=== PATIENT | male | born 1955 | race Caucasian/White ===

== ENCOUNTER 2017-05-21 16:07 | Inpatient (IN) | payer MEDICARE ==
[2017-05-21 16:44] VITALS: BMI 26.9
[2017-05-22] MEDS ORDERED: Apap-Butalbital-Caffeine 325-50-40mg Tab PO PRN (00:14)
[2017-05-22] MEDS ORDERED: Albuterol-Ipratrop 3 mg / 0.5 (3 ml) UD IH PRN (00:58)
[2017-05-22] MEDS: Insulin Lispro (humaLOG) 100 Units/ml Inj SC SCH ×4 (07:27→21:49)
[2017-05-22] MEDS: Pantoprazole 40 mg EC Tab PO SCH (08:54)
--- NOTE | 2017-05-22 12:13 | PSY.TMCNF ---
Nursing - Vital Signs Vital Signs (Last 8 hours): Vital Signs 05/22/17 05/22/17 05/22/17 07:54 08:53 08:54 Temperature 97.9 F Pulse Rate 73 73 73 Respiratory 18 Rate Blood Pressure 166/95 H 166/95 H 166/95 H O2 Sat by Pulse 97 Oximetry 05/22/17 08:55 Temperature Pulse Rate 73 Respiratory Rate Blood Pressure 166/95 H O2 Sat by Pulse Oximetry - Bladder Management Bladder Pattern: Normal - Bowel Management Bowel Pattern: Normal - Goals/Time Frame Comments: Pt was seen awake and alert laying in bed. Pt agreeable to evaluation session. Pt was able to identify his minimal leisure interests such as reading, writing, and watching television. 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 Pt expressed minimal interest in participating in recreation therapy sessions. Physical Therapy - Bed Mobility Bed Mobility: Contact Guard - Transfers Wheelchair to Mat: Contact Guard Sit to Stand: Contact Guard - Ambulation Level of Assistance: Contact Guard, Minimal Assistance Distance (ft.): 150 Assistive Devices: N/A - Stair Negotiation Stairs: Level of Assistance: Verbal Cues, Contact Guard Handrails: Bilateral - Standing Balance Static Stand: Supervision Dynamic Stand: Single leg stance, Tandem stance, Minimal Assistance, Moderate Assistance - Pain Comment: occasional headache, RN made aware - Insight/Carryover Insight/Carryover: Good - Patient/Family Education Comment: Pt education provided for increased safety awareness and proper techniques during functional mobility skills. Pt/family education provided on therapy schedule and goals of acute rehab. - Assessment/Plan Assessment: Pt was educated about the benefits and purpose of participating in recreation therapy sessions on unit. Pt presents with impulsivity, decrease leisure awareness level, and decrease insight of deficits. - Goals Timeframe: 2 weeks Goals: Sit < > supine (I). SIt < > stand mod I. Pt will ambulate 500 ft (I). Pt will ascend/descend flight of stairs mod I with handrail - Provider Therapist: Kathleen Ma PT DPT License Number: [id number] Occupational Therapy - Arousal/Attention/Orientation Patient Orientation: Person, Place, Time - Pain Comment: occasional headache, RN made aware - Insight/Carryover Insight/Carryover: Good - Patient/Family Education Comment: Pt education provided for increased safety awareness and proper techniques during functional mobility skills. Pt/family education provided on therapy schedule and goals of acute rehab. - Assessment/Plan Assessment: Pt was educated about the benefits and purpose of participating in recreation therapy sessions on unit. Pt presents with impulsivity, decrease leisure awareness level, and decrease insight of deficits. - Goals Timeframe: 2 weeks Goals: Sit < > supine (I). SIt < > stand mod I. Pt will ambulate 500 ft (I). Pt will ascend/descend flight of stairs mod I with handrail - Provider Therapist: CASSANDRA Speech Therapy - Plan Assessment: Pt was educated about the benefits and purpose of participating in recreation therapy sessions on unit. Pt presents with impulsivity, decrease leisure awareness level, and decrease insight of deficits. Recreational Therapy - Participation Participation: Monitors His/Her Own Leisure Time - Attendance Attendance: Daily - Activities Leisure Activities: Television - Socialization Level of Socialization: Initiates/interacts freely with care givers and peer - Assessment Assessment/Plan: Pt was educated about the benefits and purpose of participating in recreation therapy sessions on unit. Pt presents with impulsivity, decrease leisure awareness level, and decrease insight of deficits. Problems Currently Limiting Participation: impulsivity, decrease leisure awareness level Goals and Time Frame: Pt will be encouraged to participate in 1:1 and group recreation therapy sessions 3-5x week to improve attention to task, arousal level, and leisure awareness level. - Provider Therapist: Edith Carrasco, [employer]INE [employer]PERATOR #[id number] Case Management - Discharge Plan Discharge Plan: Home with significant other/family Rehabilitation Plan - Treatment Plan Treatment Plan: Physical Therapy, Occupational Therapy, Speech, Dietary, Patient /Family Education - Recommendation Recommendation: Physical Therapy, Occupational Therapy, Speech, Dietary - Discharge Plan Discharge to: Home
[2017-05-22] MEDS: SYSTANE BALANCE OD SCH ×2 (12:32→17:44)
--- NOTE | 2017-05-22 16:44 | PCM.OPOC ---
Physiatry Overall Plan of Care - Overall Plan of Care Estimated Length of Stay in Weeks: 2 Rehab Impairment: Mobility, Gait, Balance, Coordination Etiologic Diagnosis: Cerebrovascular Accident Rehab/Medical Prognosis: Good - Anticipated Interventions Physical Therapy:: Yes Occupational Therapy:: Yes Speech Therapy:: No Recreational Therapy:: Yes - Therapy Goals Bed Mobility: Supervision Ambulation: Supervision Functional Positional Changes:: Supervision - Discharge Plan Discharge Destination: Home
--- NOTE | 2017-05-22 16:46 | CP.PCM.CON ---
History of Present Illness - History of Present Illness History of Present Illness: Dr Thomas PMR consultation coverage for Dr Hebert on Sammi Ulloa born 1955 who has been admitted to [facility] for acute inpatient rehabilitation. 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 Review of Systems - Constitutional Constitutional: absent: Chills, Daytime Sleepiness - EENT Eyes: absent: Blind Spots, Blurred Vision Ears: absent: Decreased Hearing Nose/Mouth/Throat: absent: Nasal Congestion, Nasal Discharge - Cardiovascular Cardiovascular: absent: Chest Pain - Respiratory Respiratory: absent: Dyspnea - Gastrointestinal Gastrointestinal: absent: Belching, Constipation - Genitourinary Genitourinary: absent: Difficulty Urinating - Musculoskeletal Musculoskeletal: absent: Arthralgias - Integumentary Integumentary: absent: Bleeding Lesions - Neurological Neurological: absent: Abnormal Hearing, Abnormal Movements, Lack of Coordination - Psychiatric Psychiatric: absent: Anxiety Past Patient History - Past Medical History & Family History Past Medical History?: Yes - Past Social History Smoking Status: Current Some Days Smoker Alcohol: None Drugs: Denies Home Situation {Lives}: With Family (7 steps) - CARDIAC Hx Hypertension: Yes - PULMONARY Hx Respiratory Disorders: Yes Other/Comment: recent Chest X-ray 05/18/2017 Patchy bibasilar infiltrates - NEUROLOGICAL Hx Neurological Disorder: Yes HX Cerebrovascular Accident: Yes (05/17/2017) - HEENT Hx HEENT Problems: No - RENAL Hx Chronic Kidney Disease: No - ENDOCRINE/METABOLIC Hx Diabetes Mellitus Type 2: Yes - HEMATOLOGICAL/ONCOLOGICAL Hx Blood Disorders: No Hx AIDS: No Hx Human Immunodeficiency Virus (HIV): No - INTEGUMENTARY Hx Dermatological Problems: No - MUSCULOSKELETAL/RHEUMATOLOGICAL Hx Musculoskeletal Disorders: No Hx Falls: No - GASTROINTESTINAL Hx Gastrointestinal Disorders: No - GENITOURINARY/GYNECOLOGICAL Hx Genitourinary Disorders: No - PSYCHIATRIC Hx Psychophysiologic Disorder: No Hx Substance Use: No - SURGICAL HISTORY Hx Surgeries: Yes Hx Coronary Artery Bypass Graft: Yes (CABG 2011) - ANESTHESIA Hx Anesthesia: Yes Hx Anesthesia Reactions: No Hx Malignant Hyperthermia: No Meds Allergies/Adverse Reactions: Allergies Allergy/AdvReac Type Severity Reaction Status Date / Time No Known Allergies Allergy Verified 05/21/17 23:30 - Medications Medications: Current Medications Acetaminophen/Butalbital/Caffeine (Fioricet) 1 tab PO Q6 PRN PRN Reason: Headache Albuterol/Ipratropium (Duoneb 3 Mg/0.5 Mg (3 Ml) Ud) 3 ml IH RQ6 PRN PRN Reason: Shortness of Breath Amlodipine Besylate (Norvasc) 5 mg PO DAILY [facility] Aspirin (Aspirin) 325 mg PO DAILY [facility] Last Admin: 05/22/17 08:52 Dose: 325 mg Atorvastatin Calcium (Lipitor) 20 mg PO HS [facility] Carvedilol (Coreg) 6.25 mg PO Q12 [facility] Clopidogrel Bisulfate (Plavix) 75 mg PO DAILY [facility] Last Admin: 05/22/17 08:54 Dose: 75 mg Heparin Sodium (Porcine) (Heparin) 5,000 units SC Q8@0600,1400,2200 [facility] PRN Reason: Protocol Last Admin: 05/22/17 14:01 Dose: 5,000 units Home Med (Systane Balance) 1 drop OD TID [facility] Last Admin: 05/22/17 12:32 Dose: 1 drop Home Med (Systane Gel Drops) 1 drop OD HS [facility] Insulin Human Lispro (Humalog) 0 units SC ACHS [facility] PRN Reason: Protocol Last Admin: 05/22/17 12:31 Dose: 3 unit Lisinopril (Zestril) 5 mg PO DAILY [facility] Metformin HCl (Glucophage) 500 mg PO BID [facility] Last Admin: 05/22/17 08:53 Dose: 500 mg Pantoprazole Sodium (Protonix Ec Tab) 40 mg PO DAILY [facility] Last Admin: 05/22/17 08:54 Dose: 40 mg Physical Exam - Constitutional Appears: Well, Non-toxic, No Acute Distress - Eye Exam Eye Exam: EOMI - ENT Exam ENT Exam: Mucous Membranes Moist - Respiratory Exam Respiratory Exam: NORMAL BREATHING PATTERN - Cardiovascular Exam Cardiovascular Exam: REGULAR RHYTHM - GI/Abdominal Exam GI & Abdominal Exam: Normal Bowel Sounds - Extremities Exam Extremities exam: Negative for: calf tenderness - Neurological Exam Neurological exam: Alert, CN II-XII Intact, Oriented x3 - Psychiatric Exam Psychiatric exam: Normal Affect, Normal Mood - Skin Skin Exam: Dry, Warm Results - Vital Signs Recent Vital Signs: Last Vital Signs Temp 97.9 F 05/22/17 14:09 Pulse 73 05/22/17 14:09 Resp 18 05/22/17 14:09 BP 166/95 H 05/22/17 14:09 Pulse Ox 98 05/22/17 08:38 - Labs Labs: Laboratory Results - last 24 hr 05/22/17 05/22/17 06:59 11:05 POC Glucose (mg/dL) 143 H 206 H Assessment & Plan - Assessment and Plan (Free Text) Assessment: PT/OT to continue to help increase functional independence Team conference for d/c planning Pain: controlled Vascular: no evidence of DVT GI: No evidence of constipation or diarrhea Patient is an excellent acute rehabilitation candidate and will have focused PT , OT and recreational therapy to help facilitate a safe and appropriate d/c plan impairment code 01.1
[2017-05-22] MEDS: SYSTANE OD SCH (22:05)
--- NOTE | 2017-05-22 22:39 | HP ---
HISTORY OF PRESENT ILLNESS: This is a 61-year-old male who was admitted to acute rehabilitation at [facility] after discharged from acute care to [facility]. The patient sustained CVA with some residual unsteady gait. The patient denied to have any shortness of breath, chest pain, and other review of systems is negative. ALLERGIES: NO KNOWN ALLERGY. MEDICATIONS: As per MAR. PAST MEDICAL HISTORY: Type 2 diabetes mellitus, hypertension, and hypercholesterolemia. SOCIAL HISTORY: Positive smoker. Denied EtOH or substance abuse. FAMILY HISTORY: Noncontributory. PHYSICAL EXAMINATION: GENERAL: The patient is in bed comfortable, not in any cardiopulmonary distress. VITAL SIGNS: Blood pressure 166/95, temperature 97.9, respiratory rate 18, and pulse 73. HEENT: Pupils equal and reactive to light. Normal-appearing mucosa of the conjunctivae, oropharynx, and nasal membrane mucosa. NECK: Supple. No JVD. No carotid bruit. No lymph node. No thyromegaly. CHEST AND LUNGS: Bilateral symmetrical expansion. Good air exchange. No rales. No rhonchi. CARDIOVASCULAR: PMI not localized, S1 and S2. No additional sounds. ABDOMEN: Normoactive bowel sounds. No tenderness. No organomegaly. No masses. EXTREMITIES: No cyanosis. No clubbing. No edema. CENTRAL NERVOUS SYSTEM: Alert, awake, and oriented x3. No neurological deficit could be appreciated except for some unsteadiness. ASSESSMENT: 1. Cerebrovascular accident. 2. Hypertension. 3. Type 2 diabetes mellitus. 4. Hypercholesterolemia. PLAN: Continue current medications and physical therapy and occupational therapy, and Neurology consultation. We will do Accu-Cheks with insulin coverage as needed. Zulay MD Andre
[2017-05-23] MEDS: Insulin Lispro (humaLOG) 100 Units/ml Inj SC SCH ×4 (06:58→21:00)
[2017-05-23] MEDS: Pantoprazole 40 mg EC Tab PO SCH (08:53)
[2017-05-23] MEDS: SYSTANE BALANCE OD SCH ×3 (08:55→17:00)
--- NOTE | 2017-05-23 19:52 | CT ---
EXAM: CT Head Without Intravenous Contrast EXAM DATE/TIME: 05/23/2017 5:17 PM CLINICAL HISTORY: 61 years old, male; Signs and symptoms; Visual disturbance and other: Headache; Additional info: Headache, blurry vision TECHNIQUE: Axial computed tomography images of the head/brain without intravenous contrast. All CT scans at this facility use one or more dose reduction techniques, viz.: automated exposure control; ma/kV adjustment per patient size (including targeted exams where dose is matched to indication; i.e. head); or iterative reconstruction technique. Coronal and sagittal reformatted images were created and reviewed. COMPARISON: There are no prior studies for comparison. FINDINGS: Brain: There is prominence of sulci, gyri and ventricles. There is no midline shift. There are no intra-axial or extra axial mass lesions or areas of hemorrhage. Fry-white differentiation is maintained. Ventricles: See above. Bony structures: Cranial vault is intact. Soft tissues: unremarkable Sinuses: There is minimal mucoperiosteal thickening in ethmoid air cells. Ears and mastoids: Middle ears and mastoids unremarkable. Orbits: Orbital contents are unremarkable. IMPRESSION: No acute intracranial abnormality
[2017-05-23] MEDS: SYSTANE OD SCH (21:25)
--- NOTE | 2017-05-23 21:30 | PN ---
DAILY PROGRESS NOTE DATE: 05/23/2017 SUBJECTIVE: The patient is seen today, 05/23/2017. He is complaining of headache, which is mostly in the vertex. The patient stated that he has been having this headache since he had CVA. The patient states that he is stressed by many things in his mind. PHYSICAL EXAMINATION: VITAL SIGNS: Blood pressure 131/87, temperature 98.2, respiratory rate 20, and pulse 68. HEENT: Pupils equal and reactive to light. Normal-appearing mucosa of the conjunctivae, oropharynx, and nasal membrane mucosa. NECK: Supple. No JVD. No carotid bruit. No lymph node. No thyromegaly. CHEST AND LUNGS: Bilateral symmetrical expansion. Good air exchange. No rales. No rhonchi. CARDIOVASCULAR: PMI not localized. S1 and S2. No additional sounds. ABDOMEN: Normoactive bowel sounds. No tenderness. No organomegaly. No masses. EXTREMITIES: No cyanosis. No clubbing. No edema. CENTRAL NERVOUS SYSTEM: Alert, awake, and oriented x2. No neurological deficits could be appreciated except for mild unsteadiness. ASSESSMENT: 1 Cerebrovascular accident. 2. Headache likely tension headache. 3. Hypertension. 4. Hypercholesterolemia. 5. Type 2 diabetes mellitus. PLAN: We will do a CAT scan. Follow Neurology recommendations. Fioricet was already given to the patient since he was in [facility]. Continue Accu-Cheks and insulin coverage and continue current medications of both aspirin and Plavix. Erin Powell MD
[2017-05-24] MEDS: Insulin Lispro (humaLOG) 100 Units/ml Inj SC SCH ×4 (06:30→21:01)
[2017-05-24 07:34] LABS: BASO % 0.2 % (0.0-2.0); EOS # 0.1 K/uL (0.0-0.7); EOS % 1.9 % (0.0-4.0); HEMOGLOBIN 14.1 g/dL (12.0-18.0); LYMPH # 1.9 K/uL (1.0-4.3); LYMPH % 25.4 % (20.0-40.0); MEAN CELL VOLUME 77.3 fl (80.0-94.0); MEAN CORPUSCULAR HEMOGLOBIN 25.9 pg (27.0-31.0); MEAN CORPUSCULAR HGB CONC 33.5 g/dL (33.0-37.0); MEAN PLATELET VOLUME 10.4 fl (7.2-11.7); MONO # 0.8 K/uL (0.0-0.8); MONO % 10.7 % (0.0-10.0); NEUT # 4.6 K/uL (1.8-7.0); NEUT % 61.8 % (50.0-75.0); NRBC % 0.2 % (0.0-0.0); RBC 5.45 Mil/uL (4.40-5.90); RED CELL DISTRIBUTION WIDTH 14.2 % (11.5-14.5); WHITE BLOOD COUNT 7.5 K/uL (4.8-10.8)
[2017-05-24 07:54] LABS: ALB/GLOB RATIO 1.1 (1.0-2.1); ALBUMIN 3.9 g/dL (3.5-5.0); ALT/SGPT 76 U/L (21-72); AST/SGOT 40 U/L (17-59); BLOOD UREA NITROGEN 19 mg/dl (9-20); CALCIUM 9.9 mg/dL (8.4-10.2); GFR AFRICAN-AMERICAN > 60; GFR NON-AFRICAN AMERICAN > 60
[2017-05-24] MEDS: Pantoprazole 40 mg EC Tab PO SCH (09:22)
[2017-05-24] MEDS: SYSTANE BALANCE OD SCH ×4 (09:23→17:30)
--- NOTE | 2017-05-24 11:03 | CP.PCM.PN ---
Subjective - Date & Time of Evaluation Date of Evaluation: 05/24/17 Objective - Vital Signs/Intake and Output Vital Signs (last 24 hours): Temp Pulse Resp BP Pulse Ox 98.2 F 80 21 159/85 H 96 05/24/17 08:32 18 09:23 18 08:32 05/24/17 09:23 05/24/17 08:32 - Medications Medications: Current Medications Albuterol/Ipratropium (Duoneb 3 Mg/0.5 Mg (3 Ml) Ud) 3 ml IH RQ6 PRN PRN Reason: Shortness of Breath Amlodipine Besylate (Norvasc) 5 mg PO DAILY [facility] Last Admin: 05/24/17 09:21 Dose: 5 mg Aspirin (Aspirin Chewable) 81 mg PO DAILY [facility] Atorvastatin Calcium (Lipitor) 20 mg PO HS [facility] Last Admin: 05/23/17 21:25 Dose: 20 mg Carvedilol (Coreg) 6.25 mg PO Q12 [facility] Last Admin: 05/24/17 09:19 Dose: 6.25 mg Clopidogrel Bisulfate (Plavix) 75 mg PO DAILY [facility] Last Admin: 05/24/17 09:18 Dose: 75 mg Heparin Sodium (Porcine) (Heparin) 5,000 units SC Q8@0600,1400,2200 [facility] PRN Reason: Protocol Last Admin: 05/24/17 05:46 Dose: 5,000 units Home Med (Systane Balance) 1 drop OD TID [facility] Last Admin: 05/24/17 09:23 Dose: 1 drop Home Med (Systane Gel Drops) 1 drop OD HS [facility] Last Admin: 05/23/17 21:25 Dose: 1 drop Insulin Human Lispro (Humalog) 0 units SC ACHS [facility] PRN Reason: Protocol Last Admin: 05/24/17 06:30 Dose: Not Given Lisinopril (Zestril) 5 mg PO DAILY [facility] Last Admin: 05/24/17 09:23 Dose: 5 mg Magnesium Oxide (Mag-Ox) 400 mg PO BID [facility] Metformin HCl (Glucophage) 500 mg PO BID [facility] Last Admin: 05/24/17 09:20 Dose: 500 mg Pantoprazole Sodium (Protonix Ec Tab) 40 mg PO DAILY [facility] Last Admin: 05/24/17 09:22 Dose: 40 mg - Labs Labs: 05/24/17 06:05 05/24/17 06:05
--- NOTE | 2017-05-24 11:19 | CP.PCM.CON ---
History of Present Illness - History of Present Illness History of Present Illness: Mr. Chapa is a 59 y/o [place]- eastern man with PMHX of CABG 2012 ( done in [facility]), NIDDM, HTN, who went to [facility] on [place]17/[place] c/o of abnormality in his gait when he woke up at 4:30 am (05/17/2017). He further claims of unsteady gait with no weakness or other neuro deficits. He felt at that time that he could "power" through the unsteadiness, but realized it was not improving. He decided to come to the ED. Upon admission in [facility], he denies falling, head trauma, loc, palpitations, SOB. However, he was complaining of right sided weakness without nausea or vomiting. The initial NIHSS was 0. He was back to baseline and ambulate around his bed in [facility] ED. CT of the head without contrast done 3017 at 2102 showed no evidence of acute territorial infarct, intracranial hemorrhage or mass effect. MRI of the brain without contrast 05/17/2017 at 2349 showed small acute right lateral medullary infarct. CTA of the neck on at 2349 showed mild stenosis of the carotid bulbs bilaterally.No mass effect. Echocardiogram done on 05/18/2017 showed LV size normal, LV disfunction is moderately reduced with EK 35%, The septal and inferoapical dexter are hypokinetic, the apex is akinetic. Mild to moderate aortic stenosis. MRA of the head on 05/20/2017 at 1405 showed no evidence of large vessel occlusion high grade stenosis or large aneurym. Carotid ultrasound showed no high grade stenosis on bilateral ICA. At present, he is alert, oriented x 3. He claims of experiencing mild to moderate right frontal headache with no blurred vision or diplopia. CT of the head showed yesterday showed no acute intracranial abnormality. He is able to answer all questions appropriately and follow commands. He further states of feeling dizzy with change of position especially from supine to standing position. Orthostatic vital signs showed standing 168/74 , HR 75, sitting 166/73 HR 76. There was no untoward events overnight. Review of Systems - Constitutional Constitutional: Headache - EENT Eyes: As Per HPI Nose/Mouth/Throat: As Per HPI - Cardiovascular Cardiovascular: As Per HPI - Respiratory Respiratory: As Per HPI - Gastrointestinal Gastrointestinal: As Per HPI - Genitourinary Genitourinary: As Per HPI - Musculoskeletal Musculoskeletal: Abnormal Gait Additional comments: tends to lean to his right side. - Integumentary Integumentary: As Per HPI - Neurological Neurological: Abnormal Gait, Dizziness Additional comments: Positive Romberg test. - Endocrine Endocrine: As Per HPI - Hematologic/Lymphatic Hematologic: As Per HPI Past Patient History - Tetanus Immunizations Tetanus Immunization: Unknown - Past Medical History & Family History Past Medical History?: Yes - Past Social History Smoking Status: Heavy Smoker > 10 Cigarettes Daily Alcohol: None Drugs: Denies Home Situation {Lives}: With Family (7 steps) - CARDIAC Hx Cardiac Disorders: Yes (hx od CABG 2011) Hx Angina: Yes Hx Hypertension: Yes - PULMONARY Hx Respiratory Disorders: Yes Other/Comment: recent Chest X-ray 05/18/2017 Patchy bibasilar infiltrates - NEUROLOGICAL Hx Neurological Disorder: Yes HX Cerebrovascular Accident: Yes (05/17/2017) - HEENT Hx HEENT Problems: No - RENAL Hx Chronic Kidney Disease: No - ENDOCRINE/METABOLIC Hx Diabetes Mellitus Type 2: Yes - HEMATOLOGICAL/ONCOLOGICAL Hx Blood Disorders: No Hx AIDS: No Hx Human Immunodeficiency Virus (HIV): No - INTEGUMENTARY Hx Dermatological Problems: No - MUSCULOSKELETAL/RHEUMATOLOGICAL Hx Musculoskeletal Disorders: No Hx Falls: No - GASTROINTESTINAL Hx Gastrointestinal Disorders: No - GENITOURINARY/GYNECOLOGICAL Hx Genitourinary Disorders: No - PSYCHIATRIC Hx Psychophysiologic Disorder: No Hx Substance Use: No - SURGICAL HISTORY Hx Surgeries: Yes Hx Coronary Artery Bypass Graft: Yes (CABG 2011) - ANESTHESIA Hx Anesthesia: Yes Hx Anesthesia Reactions: No Hx Malignant Hyperthermia: No Meds Allergies/Adverse Reactions: Allergies Allergy/AdvReac Type Severity Reaction Status Date / Time No Known Allergies Allergy Verified 05/21/17 23:30 - Medications Medications: Current Medications Albuterol/Ipratropium (Duoneb 3 Mg/0.5 Mg (3 Ml) Ud) 3 ml IH RQ6 PRN PRN Reason: Shortness of Breath Amlodipine Besylate (Norvasc) 5 mg PO DAILY [facility] Last Admin: 05/24/17 09:21 Dose: 5 mg Aspirin (Aspirin Chewable) 81 mg PO DAILY [facility] Atorvastatin Calcium (Lipitor) 20 mg PO HS [facility] Last Admin: 05/23/17 21:25 Dose: 20 mg Carvedilol (Coreg) 6.25 mg PO Q12 [facility] Last Admin: 05/24/17 09:19 Dose: 6.25 mg Clopidogrel Bisulfate (Plavix) 75 mg PO DAILY [facility] Last Admin: 05/24/17 09:18 Dose: 75 mg Heparin Sodium (Porcine) (Heparin) 5,000 units SC Q8@0600,1400,2200 [facility] PRN Reason: Protocol Last Admin: 05/24/17 05:46 Dose: 5,000 units Home Med (Systane Balance) 1 drop OD TID [facility] Last Admin: 05/24/17 09:23 Dose: 1 drop Home Med (Systane Gel Drops) 1 drop OD HS [facility] Last Admin: 05/23/17 21:25 Dose: 1 drop Insulin Human Lispro (Humalog) 0 units SC ACHS [facility] PRN Reason: Protocol Last Admin: 05/24/17 06:30 Dose: Not Given Lisinopril (Zestril) 5 mg PO DAILY [facility] Last Admin: 05/24/17 09:23 Dose: 5 mg Magnesium Oxide (Mag-Ox) 400 mg PO BID [facility] Metformin HCl (Glucophage) 500 mg PO BID [facility] Last Admin: 05/24/17 09:20 Dose: 500 mg Pantoprazole Sodium (Protonix Ec Tab) 40 mg PO DAILY [facility] Last Admin: 05/24/17 09:22 Dose: 40 mg Physical Exam - Constitutional Appears: No Acute Distress - Head Exam Head Exam: NORMAL INSPECTION - Eye Exam Pupil Exam: PERRL - ENT Exam ENT Exam: Mucous Membranes Moist, Normal Exam - Neck Exam Neck exam: Positive for: Normal Inspection - Respiratory Exam Respiratory Exam: Clear to Auscultation Bilateral, NORMAL BREATHING PATTERN - GI/Abdominal Exam GI & Abdominal Exam: Normal Bowel Sounds, Soft. absent: Tenderness - Neurological Exam Neurological exam: Abnormal Gait, Alert, CN II-XII Intact, Normal Gait, Oriented x3, Reflexes Normal - Expanded Neurological Exam Expanded Patient oriented to: person, place, time Cranial nerves: EOM's Intact: Normal, Nystagmus: Normal, Tongue Deviation: Normal Cerebellar Function: Finger to Nose: Normal, Romberg: Abnormal Right Upper motor neuron: Pronator Drift: Normal Sensory exam: Lower Extremity 2 Point Discrimination: Normal, Lower Extremity Light Touch: Normal, Lower Extremity Pin Prick: Normal, Lower Extremity Temperature: Normal, Upper Extremity 2 Point Discrimination: Normal, Upper Extremity Light Touch: Normal, Upper Extremity Pin Prick: Normal, Upper Extremity Temperature: Normal Neuro motor strength exam: Left Upper Extremity: 5, Right Upper Extremity: 5, Left Lower Extremity: 5, Right Lower Extremity: 5 Results - Vital Signs Recent Vital Signs: Last Vital Signs Temp 98.2 F 05/24/17 08:32 Pulse 80 05/24/17 09:23 Resp 21 05/24/17 08:32 BP 159/85 H 05/24/17 09:23 Pulse Ox 96 05/24/17 08:32 - Labs Result Diagrams: 05/24/17 06:05 05/24/17 06:05 Labs: Laboratory Results - last 24 hr 05/23/17 05/23/17 05/23/17 10:53 16:09 20:57 WBC RBC Hgb Hct MCV MCH MCHC RDW Plt Count MPV Neut % (Auto) Lymph % (Auto) [place] % (Auto) Eos % (Auto) Baso % (Auto) Neut # (Auto) Lymph # (Auto) [place] # (Auto) Eos # (Auto) Baso # (Auto) Sodium Potassium Chloride Carbon Dioxide Anion Gap BUN Creatinine Est GFR ( Amer) Est GFR (Non-Af Amer) POC Glucose (mg/dL) 217 H 103 151 H Random Glucose Calcium Total Bilirubin AST ALT Alkaline Phosphatase Total Protein Albumin Globulin Albumin/Globulin Ratio 05/24/17 05/24/17 05/24/17 05:45 06:05 06:05 WBC 7.5 RBC 5.45 Hgb 14.1 Hct 42.2 MCV 77.3 L MCH 25.9 L MCHC 33.5 RDW 14.2 Plt Count 205 MPV 10.4 Neut % (Auto) 61.8 Lymph % (Auto) 25.4 Barn[place] % (Auto) 10.7 H Eos % (Auto) 1.9 Baso % (Auto) 0.2 Neut # (Auto) 4.6 Lymph # (Auto) 1.9 Barnwell # (Auto) 0.8 Eos # (Auto) 0.1 Baso # (Auto) 0.0 Sodium 142 Potassium 4.9 Chloride 99 Carbon Dioxide 30 Anion Gap 18 BUN 19 Creatinine 1.0 Est GFR ( Amer) > 60 Est GFR (Non-Af Amer) > 60 POC Glucose (mg/dL) 137 H Random Glucose 147 H Calcium 9.9 Total Bilirubin 0.5 AST 40 ALT 76 H Alkaline Phosphatase 77 Total Protein 7.6 Albumin 3.9 Globulin 3.7 Albumin/Globulin Ratio 1.1 Assessment & Plan (1) Ischemic stroke Assessment and Plan: Case discussed with Dr. Hoyos Mr. Chapa is a 59 y/o [place]- eastern man with PMHX of CABG 2011 ( done in [facility]), NIDDM, HTN, who went to [facility] on [place]17/[place] c/o of abnormality in his gait when he woke up at 4:30 am (05/17/2017). He further claims of unsteady gait with no weakness or other neuro deficits. He felt at that time that he could "power" through the unsteadiness, but realized it was not improving. He decided to come to the ED. Upon admission in [facility], he denies falling, head trauma, loc, palpitations, SOB. However, he was complaining of right sided weakness without nausea or vomiting. The initial NIHSS was 0. He was back to baseline and ambulate around his bed in [facility]. Recommend the following 1. continue all current medical regimen including dual antiplatet and statin 2. Continue physical, occupational, and speech therapies 3. DVT prophylaxis. 4. Maintain blood pressure control and glycemic control. Thank you. Status: Acute (2) Headache Assessment and Plan: Case discussed with Dr. Hoyos, recommend no opiates due to his ischemic stroke and to monitor mental status, recommend magnesium oxide 400 mg PO BID ( hold if diarrhea occurs), and EEG Status: Acute
--- NOTE | 2017-05-24 17:25 | CP.PCM.PN ---
Subjective - Date & Time of Evaluation Date of Evaluation: 05/24/17 Time of Evaluation: 17:23 - Subjective Subjective: Patient seen in the room and I ambulated 150' with hand held assistance. He has some loss of balance and did lean close to the wall there is an issue with him wanting to get home on a day pass. If his is ok with family training then that will be ok If he cannot abide by our safety needs then he will be discharged. I discussed with staff and Sammi at length Objective - Vital Signs/Intake and Output Vital Signs (last 24 hours): Temp Pulse Resp BP Pulse Ox 98.2 F 80 21 159/85 H 98 05/24/17 08:32 05/24/17 09:23 05/24/17 08:32 05/24/17 09:23 05/24/17 08:56 - Medications Medications: Current Medications Albuterol/Ipratropium (Duoneb 3 Mg/0.5 Mg (3 Ml) Ud) 3 ml IH RQ6 PRN PRN Reason: Shortness of Breath Amlodipine Besylate (Norvasc) 5 mg PO DAILY [facility] Last Admin: 05/24/17 09:21 Dose: 5 mg Aspirin (Aspirin Chewable) 81 mg PO DAILY [facility] Atorvastatin Calcium (Lipitor) 20 mg PO HS [facility] Last Admin: 05/23/17 21:25 Dose: 20 mg Carvedilol (Coreg) 6.25 mg PO Q12 [facility] Last Admin: 05/24/17 09:19 Dose: 6.25 mg Clopidogrel Bisulfate (Plavix) 75 mg PO DAILY [facility] Last Admin: 05/24/17 09:18 Dose: 75 mg Heparin Sodium (Porcine) (Heparin) 5,000 units SC Q8@0600,1400,2200 [facility] PRN Reason: Protocol Last Admin: 05/24/17 13:56 Dose: 5,000 units Home Med (Systane Balance) 1 drop OD TID [facility] Last Admin: 05/24/17 12:32 Dose: Not Given Home Med (Systane Gel Drops) 1 drop OD HS [facility] Last Admin: 05/23/17 21:25 Dose: 1 drop Insulin Human Lispro (Humalog) 0 units SC ACHS [facility] PRN Reason: Protocol Last Admin: 05/24/17 11:30 Dose: Not Given Lisinopril (Zestril) 5 mg PO DAILY [facility] Last Admin: 05/24/17 09:23 Dose: 5 mg Magnesium Oxide (Mag-Ox) 400 mg PO BID [facility] Metformin HCl (Glucophage) 500 mg PO BID [facility] Last Admin: 05/24/17 09:20 Dose: 500 mg Pantoprazole Sodium (Protonix Ec Tab) 40 mg PO DAILY [facility] Last Admin: 05/24/17 09:22 Dose: 40 mg - Labs Labs: 05/24/17 06:05 05/24/17 06:05
[2017-05-24] MEDS: Magnesium Oxide 400 mg Tab UD PO SCH (17:29)
[2017-05-24] MEDS: SYSTANE OD SCH (21:21)
[2017-05-25] MEDS: Insulin Lispro (humaLOG) 100 Units/ml Inj SC SCH ×5 (06:30→22:12)
[2017-05-25 07:10] LABS: HDL CHOLESTEROL 29 MG/DL (30-70)
[2017-05-25 07:22] LABS: LDL CHOLESTEROL 90 mg/dL (0-129)
[2017-05-25] MEDS: Magnesium Oxide 400 mg Tab UD PO SCH ×2 (09:04→17:24)
[2017-05-25] MEDS: Pantoprazole 40 mg EC Tab PO SCH (09:04)
[2017-05-25] MEDS: SYSTANE BALANCE OD SCH ×3 (09:06→17:25)
[2017-05-25] MEDS: SYSTANE OD SCH (22:02)
--- NOTE | 2017-05-25 23:37 | PN ---
DAILY PROGRESS NOTE DATE: 05/25/2017 SUBJECTIVE: The patient is seen today, 05/25/2017. He is not in any cardiopulmonary distress and headache is better after the patient was started on magnesium. PHYSICAL EXAMINATION: VITAL SIGNS: Blood pressure is 130/80, temperature 97.6, respiratory rate 18, and pulse 80. HEENT: Pupils equal and reactive to light. Normal-appearing mucosa of the conjunctivae, oropharynx, and nasal membrane mucosa. NECK: Supple. No JVD. No carotid bruit. No lymph node. No thyromegaly. CHEST AND LUNGS: Bilateral symmetrical expansion. Good air exchange. No rales. No rhonchi. CARDIOVASCULAR: PMI not localized. S1 and S2. No additional sounds. ABDOMEN: Normoactive bowel sounds. No tenderness. No organomegaly. No masses. EXTREMITIES: No cyanosis. No clubbing. No edema. CENTRAL NERVOUS SYSTEM: Alert, awake, and oriented x2. No neurological deficits could be appreciated. ASSESSMENT: 1. Cerebrovascular accident. 2. Hypertension. 3. Hypercholesterolemia. 4. Type 2 diabetes mellitus. PLAN: Continue current medicine and we will order also [place]-3 at 2,000 units twice a day for hypertriglyceridemia. Erin Powell MD
[2017-05-26] MEDS: Insulin Lispro (humaLOG) 100 Units/ml Inj SC SCH ×4 (07:57→21:56)
[2017-05-26] MEDS: Omega-3-Acid Ethyl Esters 1 GM Cap PO SCH ×2 (08:30→16:46)
[2017-05-26] MEDS: Pantoprazole 40 mg EC Tab PO SCH (08:32)
[2017-05-26] MEDS: SYSTANE BALANCE OD SCH ×3 (08:32→16:46)
[2017-05-26] MEDS: Magnesium Oxide 400 mg Tab UD PO SCH ×2 (10:13→16:46)
[2017-05-26] MEDS: SYSTANE OD SCH (21:58)
[2017-05-27] MEDS: Insulin Lispro (humaLOG) 100 Units/ml Inj SC SCH ×4 (06:59→21:00)
[2017-05-27] MEDS: Pantoprazole 40 mg EC Tab PO SCH (08:33)
[2017-05-27] MEDS: Magnesium Oxide 400 mg Tab UD PO SCH ×2 (08:34→16:51)
[2017-05-27] MEDS: SYSTANE BALANCE OD SCH ×3 (08:35→16:51)
[2017-05-27] MEDS: Omega-3-Acid Ethyl Esters 1 GM Cap PO SCH ×2 (08:35→16:51)
--- NOTE | 2017-05-27 11:02 | EEG ---
ELECTROENCEPHALOGRAM REPORT DATE: Technical Information: Electrodes were placed according to the 10-20 International electrode system by medical laboratory technologist. Total of 23 electrodes (21 EEG and 2 EKG) were placed. EEG activity was digitally recorded referentially to P1/P2 or A1/A2 electrodes. Continuous monitoring with EEG was performed using digital analysis for spike detection. The [employer] spike and seizure detection algorithms were used for digital EEG analysis throughout the monitoring period to screen the EEG in real-time and lissa the data file with pointers to electrographic seizures and interictal discharges. EEG was screened for electrographic seizures and interictal discharges by a technologist. Physician, epileptologist reviewed detections as well as extensive random samples and whole EEG study in detail. Digital EEG Analysis: Was carried out including FFT (Fast Fourier Transform), R2D2 (Rhythmicity Run Detection and Display), Relative Asymmetry Spectrogram, and voltage plot by the [employer] Software. The Qualitative EEG analysis and the voltage plot mapping were used for detection of foci of paroxysmal and abnormal electrical cortical activity. General Description: Background Rhythm: There is a well-formed, 8-10 Hz posterior dominant rhythm that is reactive, symmetric, and attenuates with eye opening. There was a normal amount of frontal beta noted bilaterally. There is no sleep recorded. Normal sleep patterns were captured, including bilaterally symmetric 12-14 Hz spindles, vertex waves, and K complexes. Activation Procedures: Photic stimulation: There is no driving noted. Hyperventilation: There is slowing noted that is self-remitted. Abnormal Activity: There are no focal epileptiform discharges noted. No clinical or subclinical seizures noted. IMPRESSION: This is a normal awake and sleep electroencephalogram. No clinical or subclinical seizures were noted. Clinical correlation is required. Ulises Hoyos MD
[2017-05-27 11:37] LABS: ALB/GLOB RATIO 1.1 (1.0-2.1); ALBUMIN 4.1 g/dL (3.5-5.0); ALT/SGPT 50 U/L (21-72); AST/SGOT 27 U/L (17-59); BLOOD UREA NITROGEN 15 mg/dl (9-20); CALCIUM 9.8 mg/dL (8.4-10.2); GFR AFRICAN-AMERICAN > 60; GFR NON-AFRICAN AMERICAN > 60; URIC ACID 7.6 mg/Dl (3.5-8.5)
--- NOTE | 2017-05-27 12:10 | CP.PCM.PN ---
Subjective - Date & Time of Evaluation Date of Evaluation: 05/27/17 Time of Evaluation: 12:03 - Subjective Subjective: Ms. Ulloa was seen and examined at the bedside. He is alert, oriented in all spheres. He claims of his headache is improving but with his stress at home is making it difficult for him. He denies any blurred vision, lightheadedness, weakness, nausea, or vomiting. He is able to ambulate and jump over his bed without assistance. He remains with bed alarm and telesitter. EEG showed no seizure activity. There was no untoward events overnight. Objective - Vital Signs/Intake and Output Vital Signs (last 24 hours): Temp Pulse Resp BP Pulse Ox 98.1 F 82 20 160/90 H 97 05/27/17 08:06 05/27/17 08:35 05/27/17 08:06 05/27/17 08:35 05/27/17 08:06 - Medications Medications: Current Medications Acetaminophen (Tylenol 325mg Tab) 650 mg PO Q6 PRN PRN Reason: PAIN LEVEL 1-10 Albuterol/Ipratropium (Duoneb 3 Mg/0.5 Mg (3 Ml) Ud) 3 ml IH RQ6 PRN PRN Reason: Shortness of Breath Amlodipine Besylate (Norvasc) 5 mg PO DAILY [facility] Last Admin: 05/27/17 08:33 Dose: 5 mg Aspirin (Aspirin Chewable) 81 mg PO DAILY [facility] Last Admin: 05/27/17 08:35 Dose: 81 mg Atorvastatin Calcium (Lipitor) 20 mg PO HS [facility] Last Admin: 05/26/17 21:44 Dose: 20 mg Carvedilol (Coreg) 6.25 mg PO Q12 [facility] Last Admin: 05/27/17 08:34 Dose: 6.25 mg Clopidogrel Bisulfate (Plavix) 75 mg PO DAILY [facility] Last Admin: 05/27/17 08:33 Dose: 75 mg Heparin Sodium (Porcine) (Heparin) 5,000 units SC Q8@0600,1400,2200 [facility] PRN Reason: Protocol Last Admin: 05/27/17 05:58 Dose: 5,000 units Home Med (Systane Balance) 1 drop OD TID [facility] Last Admin: 05/27/17 08:35 Dose: 1 drop Home Med (Systane Gel Drops) 1 drop OD HS [facility] Last Admin: 05/26/17 21:58 Dose: 1 drop Insulin Human Lispro (Humalog) 0 units SC [facility] PRN Reason: Protocol Last Admin: 05/27/17 11:18 Dose: Not Given Lisinopril (Zestril) 5 mg PO DAILY [facility] Last Admin: 05/27/17 08:35 Dose: 5 mg Magnesium Oxide (Mag-Ox) 400 mg PO BID [facility] Last Admin: 05/27/17 08:34 Dose: 400 mg Meclizine HCl (Antivert) 25 mg PO BID [facility] Last Admin: 05/27/17 08:33 Dose: 25 mg Metformin HCl (Glucophage) 500 mg PO BID [facility] Last Admin: 05/27/17 08:33 Dose: 500 mg Mfmar-1-Qxmg Ethyl Esters (Lovaza) 2 gm PO BID [facility] Last Admin: 05/27/17 08:35 Dose: 2 gm Pantoprazole Sodium (Protonix Ec Tab) 40 mg PO DAILY [facility] Last Admin: 05/27/17 08:33 Dose: 40 mg - Labs Labs: 05/24/17 06:05 05/27/17 10:59 - Constitutional Appears: No Acute Distress - Head Exam Head Exam: NORMAL INSPECTION - Neurological Exam Neurological Exam: Alert, Awake Neuro motor strength exam: Left Upper Extremity: 5, Right Upper Extremity: 5, Left Lower Extremity: 5, Right Lower Extremity: 5 Additional comments: Neurological unchanged from previous examination. Assessment and Plan (1) Ischemic stroke Assessment & Plan: Case discussed with Dr. Caro, continue all current medical, physical, occupational, and speech therapies. Recommend to follow up with an outpatient neurologist 2 weeks upon discharge. Status: Acute
[2017-05-27] MEDS ORDERED: SYSTANE BALANCE OD PRN (18:22)
--- NOTE | 2017-05-27 18:31 | CP.PCM.PN ---
Subjective - Date & Time of Evaluation Date of Evaluation: 05/25/17 Time of Evaluation: 13:00 - Subjective Subjective: no acute complaints at present Objective - Vital Signs/Intake and Output Vital Signs (last 24 hours): Temp Pulse Resp BP Pulse Ox 98.1 F 91 H 20 139/76 98 05/27/17 08:06 05/27/17 16:19 05/27/17 08:06 05/27/17 16:19 05/27/17 16:19 - Medications Medications: Current Medications Acetaminophen (Tylenol 325mg Tab) 650 mg PO Q6 PRN PRN Reason: PAIN LEVEL 1-10 Albuterol/Ipratropium (Duoneb 3 Mg/0.5 Mg (3 Ml) Ud) 3 ml IH RQ6 PRN PRN Reason: Shortness of Breath Amlodipine Besylate (Norvasc) 5 mg PO DAILY [facility] Last Admin: 05/27/17 08:33 Dose: 5 mg Aspirin (Aspirin Chewable) 81 mg PO DAILY [facility] Last Admin: 05/27/17 08:35 Dose: 81 mg Atorvastatin Calcium (Lipitor) 20 mg PO HS [facility] Last Admin: 05/26/17 21:44 Dose: 20 mg Carvedilol (Coreg) 6.25 mg PO Q12 [facility] Last Admin: 05/27/17 08:34 Dose: 6.25 mg Clopidogrel Bisulfate (Plavix) 75 mg PO DAILY [facility] Last Admin: 05/27/17 08:33 Dose: 75 mg Heparin Sodium (Porcine) (Heparin) 5,000 units SC Q8@0600,1400,2200 [facility] PRN Reason: Protocol Last Admin: 05/27/17 13:13 Dose: 5,000 units Home Med (Systane Gel Drops) 1 drop OD HS [facility] Last Admin: 05/26/17 21:58 Dose: 1 drop Home Med (Systane Balance) 1 drop OD TID PRN PRN Reason: Dry eyes Insulin Human Lispro (Humalog) 0 units SC [facility] PRN Reason: Protocol Last Admin: 05/27/17 16:50 Dose: 2 unit Lisinopril (Zestril) 5 mg PO DAILY [facility] Last Admin: 05/27/17 08:35 Dose: 5 mg Magnesium Oxide (Mag-Ox) 400 mg PO BID [facility] Last Admin: 05/27/17 16:51 Dose: 400 mg Meclizine HCl (Antivert) 25 mg PO BID [facility] Last Admin: 05/27/17 16:52 Dose: 25 mg Metformin HCl (Glucophage) 500 mg PO BID [facility] Last Admin: 05/27/17 16:51 Dose: 500 mg [id number] Ethyl Esters (Lovaza) 2 gm PO BID [facility] Last Admin: 05/27/17 16:51 Dose: 2 gm Pantoprazole Sodium (Protonix Ec Tab) 40 mg PO DAILY [facility] Last Admin: 05/27/17 08:33 Dose: 40 mg - Labs Labs: 05/24/17 06:05 05/27/17 10:59 - Head Exam Head Exam: ATRAUMATIC, NORMAL INSPECTION, NORMOCEPHALIC - Eye Exam Eye Exam: EOMI, Normal appearance, PERRL Pupil Exam: NORMAL ACCOMODATION, PERRL - ENT Exam ENT Exam: Mucous Membranes Moist, Normal Exam - Neck Exam Neck Exam: Full ROM, Normal Inspection. absent: Lymphadenopathy - Respiratory Exam Respiratory Exam: Clear to Ausculation Bilateral, NORMAL BREATHING PATTERN - Cardiovascular Exam Cardiovascular Exam: REGULAR RHYTHM, +S1, +S2. absent: Murmur - GI/Abdominal Exam GI & Abdominal Exam: Soft, Normal Bowel Sounds. absent: Tenderness - Rectal Exam Rectal Exam: NORMAL INSPECTION - Exam External exam: NORMAL EXTERNAL EXAM - Extremities Exam Extremities Exam: Full ROM, Normal Capillary Refill, Normal Inspection. absent : Joint Swelling, Pedal Edema - Back Exam Back Exam: NORMAL INSPECTION - Neurological Exam Neurological Exam: Alert Neuro motor strength exam: Left Upper Extremity: 3, Right Upper Extremity: 3, Left Lower Extremity: 3 - Psychiatric Exam Psychiatric exam: Normal Affect, Normal Mood - Skin Skin Exam: Normal Color Assessment and Plan (1) Ischemic stroke Assessment & Plan: plan for physical, occupational therapy and rec therapy Status: Acute
--- NOTE | 2017-05-27 18:33 | CP.PCM.PN ---
Subjective - Date & Time of Evaluation Date of Evaluation: 05/27/17 Time of Evaluation: 14:00 - Subjective Subjective: patinet with no specific neck or back pain, wants to go on a pass Objective - Vital Signs/Intake and Output Vital Signs (last 24 hours): Temp Pulse Resp BP Pulse Ox 98.1 F 91 H 20 139/76 98 05/27/17 08:06 05/27/17 16:19 05/27/17 08:06 05/27/17 16:19 05/27/17 16:19 - Medications Medications: Current Medications Acetaminophen (Tylenol 325mg Tab) 650 mg PO Q6 PRN PRN Reason: PAIN LEVEL 1-10 Albuterol/Ipratropium (Duoneb 3 Mg/0.5 Mg (3 Ml) Ud) 3 ml IH RQ6 PRN PRN Reason: Shortness of Breath Amlodipine Besylate (Norvasc) 5 mg PO DAILY [facility] Last Admin: 05/27/17 08:33 Dose: 5 mg Aspirin (Aspirin Chewable) 81 mg PO DAILY [facility] Last Admin: 05/27/17 08:35 Dose: 81 mg Atorvastatin Calcium (Lipitor) 20 mg PO HS [facility] Last Admin: 05/26/17 21:44 Dose: 20 mg Carvedilol (Coreg) 6.25 mg PO Q12 [facility] Last Admin: 05/27/17 08:34 Dose: 6.25 mg Clopidogrel Bisulfate (Plavix) 75 mg PO DAILY [facility] Last Admin: 05/27/17 08:33 Dose: 75 mg Heparin Sodium (Porcine) (Heparin) 5,000 units SC Q8@0600,1400,2200 [facility] PRN Reason: Protocol Last Admin: 05/27/17 13:13 Dose: 5,000 units Home Med (Systane Gel Drops) 1 drop OD HS [facility] Last Admin: 05/26/17 21:58 Dose: 1 drop Home Med (Systane Balance) 1 drop OD TID PRN PRN Reason: Dry eyes Insulin Human Lispro (Humalog) 0 units SC [facility] PRN Reason: Protocol Last Admin: 05/27/17 16:50 Dose: 2 unit Lisinopril (Zestril) 5 mg PO DAILY [facility] Last Admin: 05/27/17 08:35 Dose: 5 mg Magnesium Oxide (Mag-Ox) 400 mg PO BID [facility] Last Admin: 05/27/17 16:51 Dose: 400 mg Meclizine HCl (Antivert) 25 mg PO BID [facility] Last Admin: 05/27/17 16:52 Dose: 25 mg Metformin HCl (Glucophage) 500 mg PO BID [facility] Last Admin: 05/27/17 16:51 Dose: 500 mg Oillt-3-Gbbp Ethyl Esters (Lovaza) 2 gm PO BID [facility] Last Admin: 05/27/17 16:51 Dose: 2 gm Pantoprazole Sodium (Protonix Ec Tab) 40 mg PO DAILY [facility] Last Admin: 05/27/17 08:33 Dose: 40 mg - Labs Labs: 05/24/17 06:05 05/27/17 10:59 - Head Exam Head Exam: ATRAUMATIC, NORMAL INSPECTION, NORMOCEPHALIC - Eye Exam Eye Exam: EOMI, Normal appearance, PERRL - ENT Exam ENT Exam: Mucous Membranes Moist, Normal Exam - Neck Exam Neck Exam: Full ROM, Normal Inspection. absent: Lymphadenopathy - Respiratory Exam Respiratory Exam: Clear to Ausculation Bilateral, NORMAL BREATHING PATTERN - Cardiovascular Exam Cardiovascular Exam: REGULAR RHYTHM, +S1, +S2. absent: Murmur - GI/Abdominal Exam GI & Abdominal Exam: Soft, Normal Bowel Sounds. absent: Tenderness - Rectal Exam Rectal Exam: NORMAL INSPECTION - Extremities Exam Extremities Exam: Full ROM, Normal Capillary Refill, Normal Inspection. absent : Joint Swelling, Pedal Edema - Back Exam Back Exam: NORMAL INSPECTION - Neurological Exam Neurological Exam: Alert Neuro motor strength exam: Left Upper Extremity: 3, Right Upper Extremity: 3, Left Lower Extremity: 3, Right Lower Extremity: 3 Additional comments: mild coordination and balance issues - Psychiatric Exam Psychiatric exam: Normal Affect - Skin Skin Exam: Normal Color Assessment and Plan (1) Ischemic stroke Assessment & Plan: plan for physical, occupational therapy . bird insist on going on a pass, clchalinoms he will stay in wheelchair trained Status: Acute
--- NOTE | 2017-05-27 19:35 | PN ---
DAILY PROGRESS NOTE DATE: 05/27/2017 SUBJECTIVE: The patient is seen today 05/27/2017. He is not in any cardiopulmonary distress. OBJECTIVE: VITAL SIGNS: Blood pressure 139/76, temperature 97.8, respiratory rate 18, and pulse 90. HEENT: Pupils equal and reactive to light. Normal-appearing mucosa of the conjunctivae, oropharynx and nasal membrane mucosa. NECK: Supple. No JVD. No carotid bruit. No lymph node. No thyromegaly. CHEST AND LUNGS: Bilateral symmetrical expansion. Good air exchange. No rales. No rhonchi. CARDIOVASCULAR: PMI not localized. S1 and S2. No additional sounds. ABDOMEN: Normoactive bowel sounds. No tenderness. No organomegaly. No masses. EXTREMITIES: No cyanosis. No clubbing. No edema. CENTRAL NERVOUS SYSTEM: Alert, awake, and oriented x2. No neurological deficit could be appreciated. ASSESSMENT: Cerebrovascular accident, type 2 diabetes mellitus, hypertension, and hypercholesterolemia. PLAN: Continue current medications and physical therapy and occupational therapy. [facility] MD Andre
[2017-05-27] MEDS: SYSTANE OD SCH ×2 (21:12→21:17)
[2017-05-28] MEDS: Insulin Lispro (humaLOG) 100 Units/ml Inj SC SCH ×4 (06:30→21:02)
[2017-05-28] MEDS: Magnesium Oxide 400 mg Tab UD PO SCH ×2 (08:03→16:53)
[2017-05-28] MEDS: Omega-3-Acid Ethyl Esters 1 GM Cap PO SCH ×2 (08:03→16:52)
[2017-05-28] MEDS: Pantoprazole 40 mg EC Tab PO SCH (08:05)
[2017-05-28] MEDS: SYSTANE OD SCH (21:31)
[2017-05-29] MEDS: Insulin Lispro (humaLOG) 100 Units/ml Inj SC SCH ×4 (06:30→21:43)
[2017-05-29] MEDS: Omega-3-Acid Ethyl Esters 1 GM Cap PO SCH ×2 (08:04→17:07)
[2017-05-29] MEDS: Magnesium Oxide 400 mg Tab UD PO SCH ×2 (08:08→17:08)
[2017-05-29] MEDS: Pantoprazole 40 mg EC Tab PO SCH (08:09)
[2017-05-29] MEDS ORDERED: Menthol/Methyl Salicylate Oinment TOP PRN (11:45)
--- NOTE | 2017-05-29 12:15 | PSY.TMCNF ---
Nursing - Vital Signs Vital Signs (Last 8 hours): Vital Signs 05/29/17 05/29/17 05/29/17 08:04 08:07 08:08 Temperature 98.1 F Pulse Rate 85 85 85 Respiratory 20 Rate Blood Pressure 153/94 H 153/94 H 153/94 H O2 Sat by Pulse 96 Oximetry 05/29/17 05/29/17 08:09 10:25 Temperature 98.1 F Pulse Rate 85 85 Respiratory 20 Rate Blood Pressure 153/94 H 153/94 H O2 Sat by Pulse Oximetry Pain: 8 - Precautions: Precautions: Fall Prevention - Medications/Other Issues Comment: Pt is impulsive, despite encouragement and education regarding safety. - Consults Comment: Dr. Hebert, Dr. Kinney - Toileting Toileting: Contact Guard - Bladder Management Bladder Pattern: Normal Voiding Method: Toilet Bladder Management: Minimal Assistance - Bowel Management Bowel Pattern: Normal Bowel Management: Contact Guard Frequency of Accidents: 0 - Transfers Transfers: Contact Guard - ADL's ADL's: Minimal Assistance - Pain Management Comments: Denies pain - Patient/Family Teaching Comments: Post CVA care, SAfety - Goals/Time Frame Comments: Per multidiscplinary team Physical Therapy - Bed Mobility Bed Mobility: Modified Independent - Transfers Wheelchair to Mat: Supervision Sit to Stand: Supervision - Ambulation Level of Assistance: Supervision, Verbal Cues, Contact Guard Distance (ft.): 250 Assistive Devices: N/A - Stair Negotiation Stairs: Level of Assistance: Supervision, Verbal Cues Number of Stairs: 12 Stairs: Assistive Devices: Left Handrail - Standing Balance Static Stand: Independent Dynamic Stand: Tandem stance, Contact Guard Assist, Minimal Assistance - Pain Management Techniques: Medication - Insight/Carryover Insight/Carryover: Fair - Patient/Family Education Comment: Patient is doing well in occupational therapy. Mr Ulloa requires CS for transfers , mobility and self care with intermittent supervision due to occassional lateral R sided losses of balances. Barriers to progress inclide: impulsivity, R sided attention and poor carryover with transfer technqiue . educated on importance of maintaining guarding on pts R side and cueing him for pacing and safety as well as to allow patient to complete more on his own to promote independence w/in the home. Reccommned - Assessment/Plan Assessment: Pt is engaged in independent leisure tasks throughout his stay on unit. Pt receives daily room visits for social support and encouragement to participate in sessions. Pt refuses 2' decrease interest in participating in leisure tasks as pt will often report of headache pain, dizziness, or fatigue. Pt often seen talking on the phone as well during his free time. Pt would benefit from participating in recreation therapy session if agreeable to improve safety awareness and deficits. - Goals Timeframe: 1 week Goals: pt will perform all basic functional transfers and adls with mod I. - Provider Therapist: Kathleen Ma PT DPT License Number: [id number] Occupational Therapy - Arousal/Attention/Orientation Patient Orientation: Person, Place, Time, Appropriate to Age, Appropriate to Situation - ADL/IADL Self Feeding: Verbal Cues, Set-up Help Grooming: Verbal Cues, Set-up Help Bathing-Upper Extremity: Verbal Cues, Set-up Help Bathing-Lower Extremity: Supervision, Verbal Cues Dressing-Upper Extremity: Verbal Cues, Set-up Help Dressing-Lower Extremity: Supervision, Set-up Help Homemaking: Not Applicable - Sitting Balance Static Sitting: Independent without upper extremity support Dynamic Sitting: Requires supervision - Transfers Wheelchair to Bed Transfers: Supervision, Verbal Cues, Contact Guard Toilet Transfers: Supervision, Verbal Cues, Contact Guard - Wheelchair Management Level of Assistance: Not Applicable - Upper Extremity Status Right Upper Extremity Comment: WFL Left Upper Extremity Comment: WFL - Pain Alleviating Techniques: Medication - Insight/Carryover Insight/Carryover: Fair - Patient/Family Education Comment: Patient is doing well in occupational therapy. Mr Ulloa requires CS for transfers , mobility and self care with intermittent supervision due to occassional lateral R sided losses of balances. Barriers to progress inclide: impulsivity, R sided attention and poor carryover with transfer technqiue . educated on importance of maintaining guarding on pts R side and cueing him for pacing and safety as well as to allow patient to complete more on his own to promote independence w/in the home. Reccommned - Assessment/Plan Assessment: Pt is engaged in independent leisure tasks throughout his stay on unit. Pt receives daily room visits for social support and encouragement to participate in sessions. Pt refuses 2' decrease interest in participating in leisure tasks as pt will often report of headache pain, dizziness, or fatigue. Pt often seen talking on the phone as well during his free time. Pt would benefit from participating in recreation therapy session if agreeable to improve safety awareness and deficits. - Goals Timeframe: 1 week Goals: pt will perform all basic functional transfers and adls with mod I. - Provider Therapist: Melissa Freeman OTR/[place]lao License Number: [id number] Speech Therapy - Plan Assessment: Pt is engaged in independent leisure tasks throughout his stay on unit. Pt receives daily room visits for social support and encouragement to participate in sessions. Pt refuses 2' decrease interest in participating in leisure tasks as pt will often report of headache pain, dizziness, or fatigue. Pt often seen talking on the phone as well during his free time. Pt would benefit from participating in recreation therapy session if agreeable to improve safety awareness and deficits. Recreational Therapy - Participation Participation: Monitors His/Her Own Leisure Time - Attendance Attendance: Daily - Activities Leisure Activities: Socializing - Socialization Level of Socialization: Initiates/interacts freely with care givers and peer - Diversional Time Diversional Time: talking on the phone - Assessment Assessment/Plan: Pt is engaged in independent leisure tasks throughout his stay on unit. Pt receives daily room visits for social support and encouragement to participate in sessions. Pt refuses 2' decrease interest in participating in leisure tasks as pt will often report of headache pain, dizziness, or fatigue. Pt often seen talking on the phone as well during his free time. Pt would benefit from participating in recreation therapy session if agreeable to improve safety awareness and deficits. Problems Currently Limiting Participation: impulsivity, decrease leisure awareness level Goals and Time Frame: Pt will be encouraged to participate in 1:1 and group recreation therapy sessions 3-5x week to improve attention to task, arousal level, and leisure awareness level. - Provider Therapist: Edith Carrasco, ASSOCIATE PROFESSOR OF LIBRARY SCIENCE #[id number] Nutrition - Current Diet Current Diet/ Supplement/ Feedings: Heart healthy, moderate consistent CHO diet , no pork/eggs - Appetite Percent Meal Consumed: 75-100% - Comments Comments: Post CVA care, SAfety - Assessment/Goals/Time Frame Assessment/Goals/Time Frame: Pt is impulsive, despite encouragement and education regarding safety. - Provider Provider: Ayah Rivero, MS, RD Case Management - Psychosocial Assessment Support Systems: Lives with Gab Jackson [phone] Psychological Interventions/Needs: Pt is alert and oriented x3, however with poor insight into medical condition, impulsive, and with balance impairments Discharge Concerns: Pt with poor insight/impulsivity Patient/Family Meeting: CM met with pt and at bedside Intervention/Goal/Outcome:: 1. Tentative d/c date to be determined 2. Pt requesting for Day pass - to be assessed by team - pt reports he has a prescheduled meeting on Saturday 8-2PM in [place]. 3. Goal: Intermittent supervision 4. Plan: home with skilled homecare vs outpatient follow up 5. DMV medical report to be sent - Discharge Plan Discharge Plan: Home with significant other/family - Provider Provider: ROBI Copeland, SUPERVISOR NURSE License Number: [id number] Rehabilitation Plan - Treatment Plan Treatment Plan: Physical Therapy, Occupational Therapy, Dietary, Patient/Family Education - Recommendation Recommendation: Physical Therapy, Occupational Therapy, Dietary, Patient/Family Education - Discharge Plan Discharge to: Home (Dc 16)
--- NOTE | 2017-05-29 12:35 | CP.PCM.PN ---
Subjective - Date & Time of Evaluation Date of Evaluation: 05/29/17 Time of Evaluation: 11:00 - Subjective Subjective: no acute complaints at present Objective - Vital Signs/Intake and Output Vital Signs (last 24 hours): Temp Pulse Resp BP Pulse Ox 98.1 F 85 20 153/94 H 96 05/29/17 10:25 05/29/17 10:25 05/29/17 10:25 05/29/17 10:25 05/29/17 08:08 - Medications Medications: Current Medications Acetaminophen (Tylenol 325mg Tab) 650 mg PO Q6 PRN PRN Reason: FOR PAIN LEVEL 8-10 Albuterol/Ipratropium (Duoneb 3 Mg/0.5 Mg (3 Ml) Ud) 3 ml IH RQ6 PRN PRN Reason: Shortness of Breath Amlodipine Besylate (Norvasc) 5 mg PO DAILY [facility] Last Admin: 05/29/17 08:09 Dose: 5 mg Aspirin (Aspirin Chewable) 81 mg PO DAILY [facility] Last Admin: 05/29/17 08:03 Dose: 81 mg Atorvastatin Calcium (Lipitor) 20 mg PO HS [facility] Last Admin: 05/28/17 21:30 Dose: 20 mg Camphor/Menthol (Bengay) 1 applic TOP BID PRN PRN Reason: FOR PAIN LEVEL 4-7 Carvedilol (Coreg) 6.25 mg PO Q12 [facility] Last Admin: 05/29/17 08:04 Dose: 6.25 mg Clopidogrel Bisulfate (Plavix) 75 mg PO DAILY [facility] Last Admin: 05/29/17 08:09 Dose: 75 mg Heparin Sodium (Porcine) (Heparin) 5,000 units SC Q8@0600,1400,2200 [facility] PRN Reason: Protocol Last Admin: 05/29/17 06:10 Dose: 5,000 units Home Med (Systane Gel Drops) 1 drop OD HS [facility] Last Admin: 05/28/17 21:31 Dose: Not Given Home Med (Systane Balance) 1 drop OD TID PRN PRN Reason: Dry eyes Last Admin: 05/29/17 08:10 Dose: 1 drop Insulin Human Lispro (Humalog) 0 units SC ACHS [facility] PRN Reason: Protocol Last Admin: 05/29/17 11:54 Dose: Not Given Lisinopril (Zestril) 5 mg PO DAILY [facility] Last Admin: 05/29/17 08:07 Dose: 5 mg Magnesium Oxide (Mag-Ox) 400 mg PO BID [facility] Last Admin: 05/29/17 08:08 Dose: 400 mg Meclizine HCl (Antivert) 25 mg PO BID [facility] Last Admin: 05/29/17 08:03 Dose: 25 mg Metformin HCl (Glucophage) 500 mg PO BID [facility] Last Admin: 05/29/17 08:04 Dose: 500 mg [id number]-5-Llfk Ethyl Esters (Lovaza) 2 gm PO BID [facility] Last Admin: 05/29/17 08:04 Dose: 2 gm Pantoprazole Sodium (Protonix Ec Tab) 40 mg PO DAILY [facility] Last Admin: 05/29/17 08:09 Dose: 40 mg - Labs Labs: 05/24/17 06:05 05/27/17 10:59 - Head Exam Head Exam: ATRAUMATIC, NORMAL INSPECTION, NORMOCEPHALIC - Eye Exam Eye Exam: EOMI, Normal appearance, PERRL - ENT Exam ENT Exam: Mucous Membranes Moist, Normal Exam - Neck Exam Neck Exam: Full ROM, Normal Inspection. absent: Lymphadenopathy - Respiratory Exam Respiratory Exam: Clear to Ausculation Bilateral, NORMAL BREATHING PATTERN - Cardiovascular Exam Cardiovascular Exam: REGULAR RHYTHM, +S1, +S2. absent: Murmur - GI/Abdominal Exam GI & Abdominal Exam: Hyperactive Bowel Sounds, Normal Bowel Sounds - Rectal Exam Rectal Exam: NORMAL INSPECTION - Exam External exam: NORMAL EXTERNAL EXAM - Extremities Exam Extremities Exam: Full ROM, Normal Capillary Refill - Back Exam Back Exam: NORMAL INSPECTION - Neurological Exam Neurological Exam: Alert, Awake Neuro motor strength exam: Left Upper Extremity: 3, Right Upper Extremity: 4, Left Lower Extremity: 3, Right Lower Extremity: 4 - Psychiatric Exam Psychiatric exam: Normal Affect, Normal Mood - Skin Skin Exam: Dry, Intact Assessment and Plan (1) Ischemic stroke Assessment & Plan: physiucal, occupational therapy [place] for 16 with home services Status: Acute
[2017-05-29 21:42] VITALS: PULSE 88
[2017-05-29] MEDS: SYSTANE OD SCH (21:52)
[2017-05-30] MEDS: Insulin Lispro (humaLOG) 100 Units/ml Inj SC SCH ×3 (07:17→17:04)
[2017-05-30 08:24] VITALS: BP 155/92; RESP 22; TEMP 98.8; O2SAT 95
[2017-05-30] MEDS: Magnesium Oxide 400 mg Tab UD PO SCH ×2 (08:29→17:06)
[2017-05-30] MEDS: Omega-3-Acid Ethyl Esters 1 GM Cap PO SCH ×2 (08:29→17:06)
[2017-05-30] MEDS: Pantoprazole 40 mg EC Tab PO SCH (08:30)
--- NOTE | 2017-05-30 10:55 | CP.PCM.PN ---
Subjective - Date & Time of Evaluation Date of Evaluation: 05/30/17 Time of Evaluation: 10:56 - Subjective Subjective: Ms. Ulloa was seen and examined at the bedside. He is alert, oriented in all spheres. He denies any headache, blurred vision, lightheadedness, weakness, nausea, or vomiting. He is able to ambulate and jump over his bed without assistance. He remains with bed alarm and telesitter. He is excited to be discharge today. There was no untoward events overnight. Objective - Vital Signs/Intake and Output Vital Signs (last 24 hours): Temp Pulse Resp BP Pulse Ox 98.8 F 88 22 155/92 H 95 05/30/17 08:23 05/30/17 08:30 05/30/17 08:23 05/30/17 08:30 05/30/17 08:23 - Medications Medications: Current Medications Acetaminophen (Tylenol 325mg Tab) 650 mg PO Q6 PRN PRN Reason: FOR PAIN LEVEL 8-10 Albuterol/Ipratropium (Duoneb 3 Mg/0.5 Mg (3 Ml) Ud) 3 ml IH RQ6 PRN PRN Reason: Shortness of Breath Amlodipine Besylate (Norvasc) 5 mg PO DAILY [facility] Last Admin: 05/30/17 08:30 Dose: 5 mg Aspirin (Aspirin Chewable) 81 mg PO DAILY [facility] Last Admin: 05/30/17 08:30 Dose: 81 mg Atorvastatin Calcium (Lipitor) 20 mg PO HS [facility] Last Admin: 05/29/17 21:42 Dose: 20 mg Camphor/Menthol (Bengay) 1 applic TOP BID PRN PRN Reason: FOR PAIN LEVEL 4-7 Last Admin: 05/29/17 17:11 Dose: 1 oin Carvedilol (Coreg) 6.25 mg PO Q12 [facility] Last Admin: 05/30/17 08:29 Dose: 6.25 mg Clopidogrel Bisulfate (Plavix) 75 mg PO DAILY [facility] Last Admin: 05/30/17 08:30 Dose: 75 mg Heparin Sodium (Porcine) (Heparin) 5,000 units SC Q8@0600,1400,2200 [facility] PRN Reason: Protocol Last Admin: 05/30/17 06:18 Dose: 5,000 units Home Med (Systane Gel Drops) 1 drop OD [facility] Last Admin: 05/29/17 21:52 Dose: 1 drop Home Med (Systane Balance) 1 drop OD TID PRN PRN Reason: Dry eyes Last Admin: 05/29/17 08:10 Dose: 1 drop Insulin Human Lispro (Humalog) [address] [facility] PRN Reason: Protocol Last Admin: 05/30/17 07:17 Dose: 2 unit Lisinopril (Zestril) 5 mg PO DAILY [facility] Last Admin: 05/30/17 08:30 Dose: 5 mg Magnesium Oxide (Mag-Ox) 400 mg PO BID [facility] Last Admin: 05/30/17 08:29 Dose: 400 mg Meclizine HCl (Antivert) 25 mg PO BID [facility] Last Admin: 05/30/17 08:30 Dose: 25 mg Metformin HCl (Glucophage) 500 mg PO BID [facility] Last Admin: 05/30/17 08:29 Dose: 500 mg Vnjyg-2-Zzna Ethyl Esters (Lovaza) 2 gm PO BID [facility] Last Admin: 05/30/17 08:29 Dose: 2 gm Pantoprazole Sodium (Protonix Ec Tab) 40 mg PO DAILY [facility] Last Admin: 05/30/17 08:30 Dose: 40 mg - Labs Labs: 05/24/17 06:05 05/27/17 10:59 - Constitutional Appears: No Acute Distress - Head Exam Head Exam: NORMAL INSPECTION - Neurological Exam Neurological Exam: Alert, Awake, Oriented x3 Neuro motor strength exam: Left Upper Extremity: 5, Right Upper Extremity: 5, Left Lower Extremity: 5, Right Lower Extremity: 5 Additional comments: Neurological unchanged from previous examination. Assessment and Plan (1) Ischemic stroke Assessment & Plan: Case discussed with Dr. Hoyos, continue all current medical, physical, occupational, and speech therapies. Recommend to follow up with an outpatient neurologist at least 2 weeks after discharge with Dr. Caro at [address] [place] [address] [place], [place] [id number] tel. [phone]. Status: Acute
--- NOTE | 2017-05-31 00:11 | DS ---
REASON FOR ADMISSION: This is a 61-year-old male with history of multiple medical problems, who was admitted to acute rehabilitation after sustaining CVA with unsteady gait. COURSE OF HOSPITALIZATION: The patient was admitted to acute rehabilitation at [facility]. The patient has physical, medicine and rehabilitation consultation done. The patient was continued on his medication of double antiplatelet as well as for hypertension and diabetes. The patient was also found to have hypertriglyceridemia and he was started on Meadow-3. The patient did well and he was discharged home to continue physical therapy as an outpatient and continue current medications. FINAL DIAGNOSES: Cerebrovascular accident, hypertension, type 2 diabetes mellitus, and hypertriglyceridemia. [facility] MD Andre
== END 2017-05-30 18:00 | disposition home health service (06) | DRG 57 ==
PROVIDERS: ADMIT Internal Medicine; ATTEND Internal Medicine
PROC: F08Z1ZZ Dressing Techniques Treatment (ICD-10-PCS; principal; 2017-05-21)
PROC: F07Z9ZZ Gait Training/Functional Ambulation Treatment (ICD-10-PCS; 2017-05-21)
PROC: F07Z8ZZ Transfer Training Treatment (ICD-10-PCS; 2017-05-21)
PROC: F07Z5ZZ Bed Mobility Treatment (ICD-10-PCS; 2017-05-21)
DX: I69.398 Other sequelae of cerebral infarction (principal); E11.9 Type 2 diabetes mellitus without complications; I25.10 Atherosclerotic heart disease of native coronary artery without angina pectoris; I69.390 Apraxia following cerebral infarction; R26.81 Unsteadiness on feet; Z95.1 Presence of aortocoronary bypass graft; I10 Essential (primary) hypertension; E78.00 Pure hypercholesterolemia, unspecified; F17.210 Nicotine dependence, cigarettes, uncomplicated; G44.209 Tension-type headache, unspecified, not intractable; E78.1 Pure hyperglyceridemia